=== PATIENT | female | born 1970 | race American Indian/Alaskan Native ===

== ENCOUNTER 2018-02-11 16:18 | Emergency (ER) | payer SELFPAY ==
[2018-02-11] MEDS ORDERED: CATAPRES ONE (16:49)
[2018-02-11] MEDS ORDERED: CATAPRES PO ONE (16:52)
[2018-02-11 17:25] LABS: Basophils % (Auto) 0.4 % (0.0-1.8); Eosinophils % (Auto) 0.7 % (0.0-4.3); Hematocrit 34.6 % (30.3-42.9); Hemoglobin 11.2 gm/dl (10.1-14.3); Lymphocytes # (Auto) 2.4 K/mm3 (1.2-5.4); Lymphocytes % (Auto) 45.9 % (13.4-35.0); Mean Corpuscular HGB Conc 32 % (30-34); Mean Corpuscular Hemoglobin 29 pg (28-32); Mean Corpuscular Volume 91 fl (79-97); Monocytes # (Auto) 0.4 K/mm3 (0.0-0.8); Monocytes % (Auto) 7.8 % (0.0-7.3); Platelet Count 301 K/mm3 (140-440); Red Blood Count 3.81 M/mm3 (3.65-5.03); Red Cell Distribution Width 15.8 % (13.2-15.2)
[2018-02-11 17:51] LABS: BUN/Creatinine Ratio 15; Blood Urea Nitrogen 15 mg/dL (7-17); Calcium 8.3 mg/dL (8.4-10.2); Hemolysis Index 2
--- NOTE | 2018-02-11 20:44 | Emergency Department Report ---
ED General Adult HPI - General Chief complaint: High BP Stated complaint: HYPERTENSIVE Time Seen by Provider: 02/11/18 20:20 Source: patient, old records reviewed (no previous) Mode of arrival: Ambulatory Limitations: No Limitations - History of Present Illness Initial comments: 47-year-old female with past medical history hypertension presents to the hospital with complaints of uncontrolled hypertension and lightheadedness for several days. Patient was diagnosed with hypertension at 2008 and was on 30 day dose of medication. Her follow up blood pressure was normal and she has not had her blood pressure checked since or seen her primary care doctor since 2008. She is not currently on any blood pressure medication. She just started monitoring her blood pressure still last 2-3 days due to her lightheaded symptoms and does not know her baseline pressure prior to this. She denies headache, blurry vision, chest pain, nausea, vomiting, shortness of breath, focal weakness, or focal numbness. - Related Data Previous Rx's Medication Instructions Recorded Last Taken Type amLODIPine [Norvasc] 10 mg PO DAILY #30 tab 02/11/18 Unknown Rx Allergies Allergy/AdvReac Type Severity Reaction Status Date / Time No Known Allergies Allergy Unverified 02/11/18 16:34 ED Review of Systems ROS: Stated complaint: HYPERTENSIVE Other details as noted in HPI Comment: All other systems reviewed and negative Other: Constitutional: No fevers chills or weight loss Eyes: No eye pain visual changes or discharge ENT: No ear pain or throat pain Neck: Denies pain Respiratory: Denies cough wheezing shortness of breath Cardiovascular: Denies chest pain, palpitations, syncope GI: Denies abdominal pain, nausea, vomiting, diarrhea : Denies dysuria Musculoskeletal: Denies back pain Skin: Denies rash, lesions, erythema Neurologic: Denies headache, numbness, weakness Psychiatric: Denies suicidal ideation, hallucinations ED Past Medical Hx - Past Medical History Previous Medical History?: No Hx Hypertension: Yes - Social History Smoking Status: Current Every Day Smoker - Medications Home Medications: Home Medications Medication Instructions Recorded Confirmed Last Taken Type amLODIPine [Norvasc] 10 mg PO DAILY #30 tab 02/11/18 Unknown Rx ED Physical Exam - General Limitations: No Limitations - Other Other exam information: General: No limitations, patient is alert in no acute distress Head exam: Atraumatic, normocephalic Eyes exam: Normal appearance, pupils equal reactive to light, extraocular movements intact ENT: Moist mucous membrane, normal oropharynx Neck exam: Normal inspection, full range of motion, no meningismus nontender Respiratory exam: Clear to auscultation bilateral, no wheezes, rales, crackles Cardiovascular: Normal rate and rhythm, normal heart sounds Abdomen: Soft, nondistended, and nontender, with normal bowel sounds, no rebound, or guarding Extremity: Full range of motion normal inspection no deformity Back: Normal Inspection, full range of motion, no tenderness Neurologic: Alert, oriented x3, cranial nerves intact, no motor or sensory deficit Psychiatric: normal affect, normal mood Skin: Warm, dry, intact ED Course Vital Signs 02/11/18 02/11/18 02/11/18 16:28 19:43 20:16 Temperature 98.6 F Pulse Rate 76 70 73 Respiratory 18 18 15 Rate Blood Pressure 221/118 185/96 O2 Sat by Pulse 100 98 100 Oximetry 02/11/18 20:21 Temperature Pulse Rate Respiratory 18 Rate Blood Pressure O2 Sat by Pulse 100 Oximetry - Reevaluation(s) Reevaluation #1: 02/11/18 20:43 Patient received clonidine 0.2 mg prior to my evaluation with reduction in BP ED Medical Decision Making - Lab Data Result diagrams: 02/11/18 16:59 02/11/18 16:59 Lab Results 02/11/18 02/11/18 02/11/18 Range/Units 16:59 16:59 19:46 WBC 5.3 (4.5-11.0) K/mm3 RBC 3.81 (3.65-5.03) M/mm3 Hgb 11.2 (10.1-14.3) gm/dl Hct 34.6 (30.3-42.9) % MCV 91 (79-97) fl MCH 29 (28-32) pg MCHC 32 (30-34) % RDW 15.8 H (13.2-15.2) % Plt Count 301 (140-440) K/mm3 Lymph % (Auto) 45.9 H (13.4-35.0) % [place] % (Auto) 7.8 H (0.0-7.3) % Eos % (Auto) 0.7 (0.0-4.3) % Baso % (Auto) 0.4 (0.0-1.8) % Lymph # 2.4 (1.2-5.4) K/mm3 [place] # 0.4 (0.0-0.8) K/mm3 Eos # 0.0 (0.0-0.4) K/mm3 Baso # 0.0 (0.0-0.1) K/mm3 Seg Neutrophils % 45.2 (40.0-70.0) % Seg Neutrophils # 2.4 (1.8-7.7) K/mm3 Sodium 141 (137-145) mmol/L Potassium 3.8 (3.6-5.0) mmol/L Chloride 104.7 (98-107) mmol/L Carbon Dioxide 26 (22-30) mmol/L Anion Gap 14 mmol/L BUN 15 (7-17) mg/dL Creatinine 1.0 (0.7-1.2) mg/dL Estimated GFR > 60 ml/min BUN/Creatinine Ratio 15 % Glucose 90 (65-100) mg/dL Calcium 8.3 L (8.4-10.2) mg/dL Troponin T < 0.010 < 0.010 (0.00-0.029) ng/mL - EKG Data -: EKG Interpreted by Me EKG shows normal: sinus rhythm, axis (66), QRS complexes (84), ST-T waves (no stem/t inv) Rate: normal (71) - Medical Decision Making Patient BP trending downward after clonidine with improvement in symptoms. Patient be started on Norvasc 10 mg daily and the importance of follow-up for reevaluation and repeat blood pressure will be stressed. - Differential Diagnosis hypertensive emergency, hypertensive urgency, renal failure Critical Care Time: No Critical care attestation.: If time is entered above; I have spent that time in minutes in the direct care of this critically ill patient, excluding procedure time. ED Disposition Clinical Impression: Uncontrolled hypertension Disposition: DC-01 TO HOME OR SELFCARE Is pt being admited?: No Does the pt Need Aspirin: No Condition: Stable Instructions: Hypertension (ED) Additional Instructions: You have received a prescription for a 30 day supply of a blood pressure medication. Please continue to monitor and recordyour blood pressure daily. It is very important that you follow-up with a primary care doctor for further monitoring and medication adjustment. Please return if symptoms worsen as indicated by your discharge instructions. Prescriptions: amLODIPine [Norvasc] 10 mg PO DAILY #30 tab Referrals: [facility] [Provider Group] - 2-3 Days (Primary care clinic) ROLAND ANAYA MD [Staff Physician] - 2-3 Days (Primary care doctor) Time of Disposition: 20:47
[2018-02-11 20:56] VITALS: BP 169/105
== END 2018-02-11 21:22 | disposition home or self-care (01) ==
LOC: ED 16:18
DX: I10 Essential (primary) hypertension (principal); F17.200 Nicotine dependence, unspecified, uncomplicated
CPT/HCPCS: 36415; 80048; 84484; 85025; 93005; 93010; 99284

== ENCOUNTER 2018-05-10 12:25 | Emergency (ER) | payer SELFPAY ==
[2018-05-10 13:40] LABS: Bilirubin,Urine NEG (Negative); Blood,Urine NEG (Negative); Color,Urine Yellow (Yellow); Hyaline Casts,Urine 4 /LPF; Mucus,Urine 2+ /HPF; Protein,Urine <15 mg/dL mg/dL (Negative); Urobilinogen,Urine < 2.0 mg/dL (<2.0)
[2018-05-10 13:41] LABS: HCG Qualitative,Urine Negative (Negative)
--- NOTE | 2018-05-10 17:52 | Emergency Department Report ---
Chief Complaint: Abdominal Pain Stated Complaint: ABD PAIN - Exam Vital Signs: Vital Signs 05/10/18 12:37 Temperature 98.9 F Pulse Rate 83 Respiratory 18 Rate Blood Pressure 167/110 O2 Sat by Pulse 100 Oximetry MSE screening note: Ms. Tilley presents with LLQ and left pelvic pain for 2 weeks. No vaginal discharge. Pelvic US and labs ordered. ED Disposition for MSE Condition: Stable Instructions: Abdominal Pain (ED) Referrals: PRIMARY CARE, [Primary Care Provider] - 3-5 Days
--- NOTE | 2018-05-10 18:03 | Emergency Department Report ---
ED Abdominal Pain HPI - General Chief Complaint: Abdominal Pain Stated Complaint: ABD PAIN Time Seen by Provider: 05/10/18 18:03 Source: patient Mode of arrival: Ambulatory Limitations: No Limitations - History of Present Illness Initial Comments: 47-year-old female presents with LLQ and left pelvic pain for 2 weeks. No vaginal discharge. Denies any urinary burning frequency or urgency. Denies any fever or chills. Denies any back pain. Pain is localized to left lower quadrant. She is not concerned for an STD. Pain is 10/10 and cramping. Nothing makes it better and nothing makes it worse. Last menstrual period was 05/03/2018. Blood pressure is 167/110 in triage and she has no symptoms of shortness of breath, chest pain, headache, dizziness, nausea or vomiting or visual deficit. She says she has high blood pressure and she took her medication today. MD Complaint: abdominal pain Onset/Timin -: week(s) Location: LLQ Radiation: none Migration to: no migration Severity: severe Severity scale (0 -10): 10 Quality: cramping Consistency: intermittent Improves With: nothing Worsens With: nothing Context: other (unknown) Associated Symptoms: denies: nausea, vomiting, diarrhea, fever, chills, constipation, dysuria, hematemesis, hematochezia, melena, hematuria, anorexia, syncope - Related Data LMP Date: 05/03/18 Previous Rx's Medication Instructions Recorded Last Taken Type amLODIPine [Norvasc] 10 mg PO DAILY #30 tab 02/11/18 Unknown Rx Ondansetron [Zofran Odt] 4 mg PO Q8H PRN #12 tab.rapdis 05/10/18 Unknown Rx traMADol [Ultram] 50 mg PO Q6HR PRN #12 tablet 05/10/18 Unknown Rx Allergies Allergy/AdvReac Type Severity Reaction Status Date / Time No Known Allergies Allergy Verified 05/10/18 12:36 ED Review of Systems ROS: Stated complaint: ABD PAIN Other details as noted in HPI Constitutional: denies: chills, fever Eyes: denies: eye pain ENT: denies: throat pain, congestion Respiratory: denies: cough, shortness of breath, SOB with exertion, SOB at rest , stridor, wheezing Cardiovascular: denies: chest pain, palpitations, dyspnea on exertion, edema, syncope, paroxysmal nocturnal dyspnea Gastrointestinal: abdominal pain. denies: nausea, vomiting, diarrhea, constipation, hematemesis, melena, hematochezia Genitourinary: denies: urgency, dysuria, frequency, hematuria, discharge, abnormal menses, dyspareunia Musculoskeletal: denies: back pain, joint swelling, arthralgia Skin: denies: rash, lesions Neurological: denies: headache, weakness, paresthesias, abnormal gait, vertigo ED Past Medical Hx - Past Medical History Previous Medical History?: Yes Hx Hypertension: Yes - Surgical History Past Surgical History?: No - Family History Family history: hypertension - Social History Smoking Status: Current Every Day Smoker Substance Use Type: Alcohol - Medications Home Medications: Home Medications Medication Instructions Recorded Confirmed Last Taken Type amLODIPine [Norvasc] 10 mg PO DAILY #30 tab 02/11/18 Unknown Rx Ondansetron [Zofran Odt] 4 mg PO Q8H PRN #12 tab.rapdis 05/10/18 Unknown Rx traMADol [Ultram] 50 mg PO Q6HR PRN #12 tablet 05/10/18 Unknown Rx ED Physical Exam - General Limitations: No Limitations General appearance: alert, in no apparent distress - Head Head exam: Present: atraumatic, normocephalic, normal inspection - Eye Eye exam: Present: normal appearance, PERRL, EOMI Pupils: Present: normal accommodation - ENT ENT exam: Present: normal exam, normal orophraynx, mucous membranes moist - Neck Neck exam: Present: normal inspection, full ROM. Absent: tenderness, lymphadenopathy - Respiratory Respiratory exam: Present: normal lung sounds bilaterally. Absent: respiratory distress, chest wall tenderness - Cardiovascular Cardiovascular Exam: Present: regular rate, normal rhythm. Absent: systolic murmur, diastolic murmur - GI/Abdominal GI/Abdominal exam: Present: soft, tenderness (left lower quadrant), normal bowel sounds. Absent: distended, guarding, rebound, rigid, organomegaly, mass, bruit, pulsatile mass - Extremities Exam Extremities exam: Present: normal inspection, full ROM, normal capillary refill , other (no clubbing, cyanosis or edema. +2 pulses to all extremities and no neurovascular compromise). Absent: tenderness, pedal edema, joint swelling, calf tenderness - Back Exam Back exam: Present: normal inspection, full ROM, other (ambulates without any difficulties). Absent: tenderness, CVA tenderness (R), CVA tenderness (L), muscle spasm, paraspinal tenderness, vertebral tenderness, rash noted - Neurological Exam Neurological exam: Present: alert, oriented X3, normal gait, reflexes normal. Absent: motor sensory deficit - Psychiatric Psychiatric exam: Present: normal affect, normal mood - Skin Skin exam: Present: warm, dry, intact, normal color. Absent: rash ED Course Vital Signs 05/10/18 05/10/18 12:37 19:52 Temperature 98.9 F Pulse Rate 83 64 Respiratory 18 16 Rate Blood Pressure 167/110 Blood Pressure 154/95 [Right] O2 Sat by Pulse 100 99 Oximetry - Reevaluation(s) Reevaluation #1: 05/10/18 21:19 Abdominal exam remained the same. Patient is stable. Pt given norco 5/325 mg po in ed for pain ED Medical Decision Making - Lab Data Result diagrams: 05/10/18 18:04 05/10/18 18:04 Lab Results 05/10/18 05/10/18 05/10/18 Range/Units 12:50 18:04 18:04 WBC 6.9 (4.5-11.0) K/mm3 RBC 3.84 (3.65-5.03) M/mm3 Hgb 11.6 (10.1-14.3) gm/dl Hct 35.2 (30.3-42.9) % MCV 92 (79-97) fl MCH 30 (28-32) pg MCHC 33 (30-34) % RDW 15.7 H (13.2-15.2) % Plt Count 394 (140-440) K/mm3 Lymph % (Auto) 43.1 H (13.4-35.0) % [place] % (Auto) 5.9 (0.0-7.3) % Eos % (Auto) 0.9 (0.0-4.3) % Baso % (Auto) 0.6 (0.0-1.8) % Lymph # 3.0 (1.2-5.4) K/mm3 [place] # 0.4 (0.0-0.8) K/mm3 Eos # 0.1 (0.0-0.4) K/mm3 Baso # 0.0 (0.0-0.1) K/mm3 Seg Neutrophils % 49.5 (40.0-70.0) % Seg Neutrophils # 3.4 (1.8-7.7) K/mm3 Sodium 139 (137-145) mmol/L Potassium 4.0 (3.6-5.0) mmol/L Chloride 102.3 (98-107) mmol/L Carbon Dioxide 27 (22-30) mmol/L Anion Gap 14 mmol/L BUN 12 (7-17) mg/dL Creatinine 0.8 (0.7-1.2) mg/dL Estimated GFR > 60 ml/min BUN/Creatinine Ratio 15 % Glucose 87 (65-100) mg/dL Calcium 8.9 (8.4-10.2) mg/dL Urine Color Yellow (Yellow) Urine Turbidity Clear (Clear) Urine pH 5.0 (5.0-7.0) Ur Specific [place] 1.026 (1.003-1.030) Urine Protein <15 mg/dl (Negative) mg/dL Urine Glucose (UA) Neg (Negative) mg/dL Urine Ketones Neg (Negative) mg/dL Urine Blood Neg (Negative) Urine Nitrite Neg (Negative) Urine Bilirubin Neg (Negative) Urine Urobilinogen < 2.0 (<2.0) mg/dL Ur Leukocyte Esterase Neg (Negative) Urine WBC (Auto) 2.0 (0.0-6.0) /HPF Urine RBC (Auto) 1.0 (0.0-6.0) /HPF U Epithel Cells (Auto) 3.0 (0-13.0) /HPF Hyaline Casts 4 /LPF Urine Mucus 2+ /HPF Urine HCG, Qual Negative (Negative) - Radiology Data Radiology results: report reviewed (ectopic , acute cystitis, colitis, ovarian cyst or torsion,) Ultrasound transvaginal and transverse transvesical sonogram dictated by radiologist and report reviewed by myself. Reports multiple presumptions simple functional hemorrhagic and nonhemorrhagic cyst measuring up to 2.2 cm. No evidence of ovarian torsion. Normal proliferative endometrial stripe appearance. No cul-de-sac fluid. Findings [facility] [address] [place] [address] Ultrasound Report Signed Patient: LILLIAM KELLER MR#: [id number] : 1970 Acct:[id number] Age/Sex: 47 / F ADM Date: 05/10/18 Loc: ED Attending Dr: EXAM: US TRANSVAGINAL HISTORY: left sided pelvic pain 2, para 2, negative beta HCG, LMP 05/03/2018 TECHNIQUE: Transvaginal and transvesical pelvic sonographic imaging was performed Comparison: None FINDINGS: Normally anteverted uterus measures 9.0 x 4.4 x 4.8 centimeters. Homogeneous myometrium. Endometrial stripe measures 12.8 millimeters. It has a trilaminar proliferative appearance. Right ovary measures 3.1 x 1.7 x 1.6 centimeters. Multiple small follicles and normal color flow. Left ovary measures 5.2 x 3.3 x 3.7 centimeters and contains multiple cysts, some of which have echoes. Simple cyst measures 2.2 centimeters. Echogenic presumably hemorrhagic cyst measures 1.7 centimeters and a 2nd one appears to be a crenated/solid or hemorrhagic cyst measuring 1.9 centimeters. Normal color flow to the left ovary. No free cul-de-sac fluid. IMPRESSION: Multiple presumably functional hemorrhagic and nonhemorrhagic left ovarian cysts measuring up to 2.2 centimeters. No evidence for ovarian torsion. Normal proliferative endometrial stripe appearance. No free cul-de-sac fluid. Transcribed By: MP Dictated By: MOUNA AREVALO Electronically Authenticated By: MOUNA AREVALO Signed Date/Time: 05/10/182099 DD/ 99 TD/TT: 05/10/182099 - Medical Decision Making This is a 47-year-old female presents to the emergency room with complaint of lower quadrant abdominal pain despite ongoing for over 2 weeks and she is here to be evaluated. She is not having any symptoms of PID to include vaginal discharge, nausea or vomiting, urinary symptoms or vaginal bleeding. She is not concerned for . This patient was screened by Dr. Trina Mcallister and she was examined by myself. Patient with tenderness to left lower quadrant of abdomen without any guarding or rebound tenderness. She has no concern for STD and no vaginal bleeding or discharge. CBC, BMP, status is stable. Ultrasound of abdomen and transvaginal ultrasound was dictated by radiologist and report reviewed by myself.Findings for multiple ovarian hemorrhagic and non-hemorrhagic cysts approximately 2.2 cm. No torsion seen. No fluid in cul-de-sac. No mention of fibroids. Lab results and ultrasound results relayed to patient. She voices understanding. Patient blood pressure is better A/P 1: Left lower quadrant abdominal pain-better after pain medication. No rco 5/ 325mg 2 tabs po. Will discharge home on Ultram and Zofran Ultrasound reveals patient with multiple cysts to include hemorrhagic and nonhemorrhagic edging up to 2.2 cm. No other abnormality found on ultrasound. 2: Multiple left ovarian cyst-per ultrasound and will refer to [facility] for further evaluation Patient educated on diagnosis, ultrasound findings, medication, laboratory findings need to follow up with [facility] and she'll be referred to my [facility] follow-up. She voiced understanding. She discharged home in stable condition with vital signs stable, she is afebrile. She is nontoxic in appearance. She was given prescription for Zofran and Ultram and to follow-up with her primary care and [facility] in 3-5 days. She voiced understanding. - Differential Diagnosis fibroids, ovarian cancer, ovarian torsion, ovarian cyst, UTI Critical care attestation.: If time is entered above; I have spent that time in minutes in the direct care of this critically ill patient, excluding procedure time. ED Disposition Clinical Impression: Abdominal pain Qualifiers: Abdominal location: left lower quadrant Qualified Code(s): R10.32 - Left lower quadrant pain Ovarian cyst Qualifiers: Laterality: left Qualified Code(s): N83.202 - Unspecified ovarian cyst, left side Disposition: DC-01 TO HOME OR SELFCARE Is pt being admited?: No Does the pt Need Aspirin: No Condition: Stable Instructions: Abdominal Pain (ED), Ovarian Cyst (ED) Additional Instructions: The ultrasound showing that you have multiple cysts on the left ovary which is the source of urinary abdominal pain. He'll need to follow up with [facility] for further evaluation and treatment. Some cysts or bleeding cyst and some are nonbleeding cyst. See [facility] referral in discharge instruction paperwork please call tomorrow to schedule an appointment for follow-up. Take Ultram and this will help her pain but please do not drive or operate heavy machinery while taking this medication Take Zofran if you develop nausea. Return to the emergency room, if your symptoms worsen Prescriptions: Ondansetron [Zofran Odt] 4 mg PO Q8H PRN #12 tab.rapdis PRN Reason: Nausea And Vomiting traMADol [Ultram] 50 mg PO Q6HR PRN #12 tablet PRN Reason: Pain Referrals: PRIMARY CARE, [Primary Care Provider] - 3-5 Days [facility] [Provider Group] - 05/14/18 [facility] [Outside] - 3-5 Days Forms: Work/School Release Form(ED)
[2018-05-10 18:28] LABS: Basophils % (Auto) 0.6 % (0.0-1.8); Eosinophils # (Auto) 0.1 K/mm3 (0.0-0.4); Eosinophils % (Auto) 0.9 % (0.0-4.3); Hematocrit 35.2 % (30.3-42.9); Hemoglobin 11.6 gm/dl (10.1-14.3); Lymphocytes % (Auto) 43.1 % (13.4-35.0); Mean Corpuscular HGB Conc 33 % (30-34); Mean Corpuscular Hemoglobin 30 pg (28-32); Mean Corpuscular Volume 92 fl (79-97); Monocytes # (Auto) 0.4 K/mm3 (0.0-0.8); Monocytes % (Auto) 5.9 % (0.0-7.3); Platelet Count 394 K/mm3 (140-440); Red Blood Count 3.84 M/mm3 (3.65-5.03); Red Cell Distribution Width 15.7 % (13.2-15.2)
[2018-05-10 18:40] LABS: BUN/Creatinine Ratio 15; Blood Urea Nitrogen 12 mg/dL (7-17); Calcium 8.9 mg/dL (8.4-10.2); Hemolysis Index 5
--- NOTE | 2018-05-10 21:04 | Ultrasound Report ---
FINAL REPORT EXAM: US TRANSVAGINAL HISTORY: left sided pelvic pain 2, para 2, negative beta HCG, LMP 05/03/2018 TECHNIQUE: Transvaginal and transvesical pelvic sonographic imaging was performed Comparison: None FINDINGS: Normally anteverted uterus measures 9.0 x 4.4 x 4.8 centimeters. Homogeneous myometrium. Endometrial stripe measures 12.8 millimeters. It has a trilaminar proliferative appearance. Right ovary measures 3.1 x 1.7 x 1.6 centimeters. Multiple small follicles and normal color flow. Left ovary measures 5.2 x 3.3 x 3.7 centimeters and contains multiple cysts, some of which have echoes. Simple cyst measures 2.2 centimeters. Echogenic presumably hemorrhagic cyst measures 1.7 centimeters and a 2nd one appears to be a crenated/solid or hemorrhagic cyst measuring 1.9 centimeters. Normal color flow to the left ovary. No free cul-de-sac fluid. IMPRESSION: Multiple presumably functional hemorrhagic and nonhemorrhagic left ovarian cysts measuring up to 2.2 centimeters. No evidence for ovarian torsion. Normal proliferative endometrial stripe appearance. No free cul-de-sac fluid.
--- NOTE | 2018-05-10 21:05 | Ultrasound Report ---
FINAL REPORT EXAM: US PELVIC COMPLETE HISTORY: Abdominal Pain TECHNIQUE: Transvaginal and transvesical pelvic sonographic imaging was performed Comparison: None FINDINGS: Normally anteverted uterus measures 9.0 x 4.4 x 4.8 centimeters. Homogeneous myometrium. Endometrial stripe measures 12.8 millimeters. It has a trilaminar proliferative appearance. Right ovary measures 3.1 x 1.7 x 1.6 centimeters. Multiple small follicles and normal color flow. Left ovary measures 5.2 x 3.3 x 3.7 centimeters and contains multiple cysts, some of which have echoes. Simple cyst measures 2.2 centimeters. Echogenic presumably hemorrhagic cyst measures 1.7 centimeters and a 2nd one appears to be a crenated/solid or hemorrhagic cyst measuring 1.9 centimeters. Normal color flow to the left ovary. No free cul-de-sac fluid. IMPRESSION: Multiple presumably functional hemorrhagic and nonhemorrhagic left ovarian cysts measuring up to 2.2 centimeters. No evidence for ovarian torsion. Negative reported beta HCG. Normal proliferative endometrial stripe appearance. No free cul-de-sac fluid.
[2018-05-10] MEDS ORDERED: NORCO 5/325 PO ONE (21:17)
[2018-05-10 21:38] VITALS: BP 136/76
== END 2018-05-10 21:35 | disposition home or self-care (01) ==
LOC: ED 12:25
DX: N83.202 Unspecified ovarian cyst, left side (principal); R10.32 Left lower quadrant pain; I10 Essential (primary) hypertension; F17.200 Nicotine dependence, unspecified, uncomplicated
CPT/HCPCS: 36415; 76830; 76856; 80048; 81001; 81025; 85025

== ENCOUNTER 2019-09-15 12:14 | Emergency (ER) | payer SELFPAY ==
[2019-09-15 12:22] VITALS: BP 129/84
--- NOTE | 2019-09-15 12:47 | Emergency Department Report ---
- General Chief Complaint: Dental/Oral Stated Complaint: L CHEEK SWOLLEN/POSS INFECTION Time Seen by Provider: 09/15/19 12:39 Source: patient Mode of arrival: Ambulatory Limitations: No Limitations - History of Present Illness Initial Comments: pt is a 48 yo female who presents to the ED with c/o an infection to the left cheek that occurred this morning. pt states that she has had a piercing present in the left cheek for 2 years. she states that she was unable to remove the piercing. she states that on 09/12 she went to a piercing place and tried to have the piercing removed. she states that the qa analyst was using a needle and scraping the cheek trying to remove it but was unable to. she states that this morning she woke up and noticed swelling to the cheek and had small amount of pus drainage. she denies any fever, nausea, vomiting, chills, difficulty swallowing or any other symptoms. she denies any allergies to meds. - Related Data Previous Rx's Medication Instructions Recorded Last Taken Type amLODIPine [Norvasc] 10 mg PO DAILY #30 tab 02/11/18 Unknown Rx Ondansetron [Zofran Odt] 4 mg PO Q8H PRN #12 tab.rapdis 05/10/18 Unknown Rx traMADol [Ultram] 50 mg PO Q6HR PRN #12 tablet 05/10/18 Unknown Rx Clindamycin [Clindamycin CAP] 450 mg PO TID 7 Days #63 capsule 09/15/19 Unknown Rx Allergies Allergy/AdvReac Type Severity Reaction Status Date / Time No Known Allergies Allergy Verified 05/10/18 12:36 ED Review of Systems ROS: Stated complaint: L CHEEK SWOLLEN/POSS INFECTION Other details as noted in HPI Comment: All other systems reviewed and negative ED Past Medical Hx - Past Medical History Previous Medical History?: Yes Hx Hypertension: Yes - Surgical History Past Surgical History?: No - Social History Smoking Status: Never Smoker Substance Use Type: Alcohol, Prescribed - Medications Home Medications: Home Medications Medication Instructions Recorded Confirmed Last Taken Type amLODIPine [Norvasc] 10 mg PO DAILY #30 tab 02/11/18 Unknown Rx Ondansetron [Zofran Odt] 4 mg PO Q8H PRN #12 tab.rapdis 05/10/18 Unknown Rx traMADol [Ultram] 50 mg PO Q6HR PRN #12 tablet 05/10/18 Unknown Rx Clindamycin [Clindamycin CAP] 450 mg PO TID 7 Days #63 capsule 09/15/19 Unknown Rx ED Physical Exam - General Limitations: No Limitations General appearance: alert, in no apparent distress - Head Head exam: Present: atraumatic, normocephalic - Eye Eye exam: Present: normal appearance - ENT ENT exam: Present: normal orophraynx, mucous membranes moist - Neurological Exam Neurological exam: Present: alert, oriented X3 - Psychiatric Psychiatric exam: Present: normal affect, normal mood - Skin Skin exam: Present: warm, dry, other (facial piercing present to the left cheek, 4 cm area of edema and induration present to the left cheek, very small amount of purulent drainage, no obvious central area of fluctuance, no necrosis, localized to the cheek region) ED Course Vital Signs 09/15/19 12:19 Temperature 98.1 F Pulse Rate 80 Respiratory 18 Rate Blood Pressure 129/84 O2 Sat by Pulse 99 Oximetry ED Medical Decision Making - Medical Decision Making pt is a 48 yo female who presents to the ED with c/o an infection to the left cheek that occurred this morning. pt states that she has had a piercing present in the left cheek for 2 years. she states that she was unable to remove the piercing. she states that on 09/12 she went to a piercing place and tried to have the piercing removed. she states that the qa analyst was using a needle and scraping the cheek trying to remove it but was unable to. she states that this morning she woke up and noticed swelling to the cheek and had small amount of pus drainage. she denies any fever, nausea, vomiting, chills, difficulty swallowing or any other symptoms. she denies any allergies to meds. vitals are normal, no tachycardia, afebrile. on exam: facial piercing present to the left cheek, 4 cm area of edema and induration present to the left cheek, very small amount of purulent drainage, no obvious central area of fluctuance, no necrosis, localized to the cheek region. appears to have facial cellulitis with possible early forming abscess present to the left cheek. there is no central abscess present at this time to drain. there is indurated tissue present. will place pt on clindamycin. advised pt to please take medication as prescribed to completi on. please increase your water intake while taking the medication. please follow up with a general surgeon as soon as possible and a primary care doctor. return to the emergency room immediately for any new or worsening symptoms or worsening signs of infection despite antibiotic therapy including but not limited to worsening swelling, worsening redness, increased pus drainage, fever, chills, vomiting, etc. discussed with pt that if worsening infection did occur she would possibly need IV abx vs surgical drainage. discussed the importance of following up with a general surgeon due to location on the face to avoid worsening infection. pt verbalized understanding. pt also given list of community clinics. - Differential Diagnosis cellulitis, abscess, infected piercing Critical care attestation.: If time is entered above; I have spent that time in minutes in the direct care of this critically ill patient, excluding procedure time. ED Disposition Clinical Impression: Cellulitis Qualifiers: Site of cellulitis: face Qualified Code(s): L03.211 - Cellulitis of face Disposition: DC- TO HOME OR SELFCARE Is pt being admited?: No Does the pt Need Aspirin: No Condition: Stable Instructions: Cellulitis (ED) Additional Instructions: please take medication as prescribed to completion. please increase your water intake while taking the medication. please follow up with a general surgeon as soon as possible and a primary care doctor. return to the emergency room immediately for any new or worsening symptoms or worsening signs of infection despite antibiotic therapy including but not limited to worsening swelling, worsening redness, increased pus drainage, fever, chills, vomiting, etc. Prescriptions: Clindamycin [Clindamycin CAP] 450 mg PO TID 7 Days #63 capsule Referrals: GOYO LEAL DO [Staff Physician] - BEV MCDONALD MD [Staff Physician] - [facility] Time of Disposition: 12:51 Print Language: TURKMEN
[2019-09-15] MEDS ORDERED: CLINDAMYCIN 150 MG/ML VIAL 6 ML IM ONE (13:05)
== END 2019-09-15 13:54 | disposition home or self-care (01) ==
LOC: ED 12:14
DX: L03.211 Cellulitis of face (principal); I10 Essential (primary) hypertension; Z79.899 Other long term (current) drug therapy
CPT/HCPCS: 96372

== ENCOUNTER 2022-03-03 17:50 | Emergency (ER) | payer MEDICARE ==
[2022-03-03 18:34] VITALS: BP 109/74
== END 2022-03-03 21:20 | disposition left against medical advice (07) ==
LOC: ED 17:50
DX: N61.1 Abscess of the breast and nipple (principal); Z53.21 Procedure and treatment not carried out due to patient leaving prior to being seen by health care provider